=== PATIENT | female | born 2005 ===

== ENCOUNTER 2024-05-02 14:00 | Outpatient (RCR) | payer OTHER, SELFPAY | END 2024-05-19 11:39 | disposition home or self-care (01) | PROVIDERS: PCP Family Medicine; Visit Provider Family Medicine | DX: M41.9 Scoliosis, unspecified (principal); Z51.89 Encounter for other specified aftercare | CPT/HCPCS: 97110; 97140; 97161 ==

== ENCOUNTER 2024-12-01 13:13 | Outpatient (CLI) | payer OTHER, SELFPAY ==
[2024-12-01 22:58] LABS: Chlamydia DNA Amplified* NOT DETECTED (No Detected); GC DNA Amplified* NOT DETECTED (No Detected)
== END 2024-12-01 13:14 | disposition home or self-care (01) ==
PROVIDERS: PCP Family Medicine; Visit Provider Family Medicine
DX: Z12.4 Encounter for screening for malignant neoplasm of cervix (principal); Z11.3 Encounter for screening for infections with a predominantly sexual mode of transmission
CPT/HCPCS: 86592; 86703; 86803; 87491; 87591; 87624; 87625; 88141; 88142